=== PATIENT | male | born 1995 | race Caucasian/White ===

== ENCOUNTER 2017-05-30 03:04 | Emergency (ER) | payer SELFPAY ==
[~2017-05-30] VITALS: Ht 175.3 cm; Wt 85.0 kg
[2017-05-30 06:05] VITALS: BP 107/47
== END 2017-05-30 06:31 | disposition home or self-care (01) ==
LOC: ED 06:25
DX: F10.120 Alcohol abuse with intoxication, uncomplicated (principal); Z79.899 Other long term (current) drug therapy
CPT/HCPCS: 36415; 80307; 99283